=== PATIENT | female | born 1935 | race Caucasian/White ===

== ENCOUNTER 2021-10-03 08:58 | Emergency (ER) | payer BC ==
[~2021-10-03] VITALS: Ht 162.6 cm; Wt 65.8 kg
--- NOTE | 2021-10-03 09:18 | NUR ---
TO ER BED 11, SYED RA102 From [place] in [facility] "Tripped on sandals hit face on wall and hurt Right Shoulder", also patient has a cut on left knuckle, [id number], breathing even and non labored, connected to monitor
--- NOTE | 2021-10-03 10:00 | NUR ---
TAKEN TO CT
--- NOTE | 2021-10-03 10:11 | NUR ---
SPOKE TO DAUGHTER IN THE WAITING ROOM, INFORMED THAT PT IS STILL IN CT
[2021-10-03] MEDS ORDERED: TRAM50TA2 PO (12:36)
--- NOTE | 2021-10-03 13:16 | NUR ---
Patient discharged to home in stable condition. Written and verbal after care instructions given. Patient verbalizes understanding of instruction.
[2021-10-03 13:19] VITALS: BP 132/64
== END 2021-10-03 13:20 | disposition home or self-care (01) ==
LOC: ER 09:01
DX: S42.411A Displaced simple supracondylar fracture without intercondylar fracture of right humerus, initial encounter for closed fracture (principal); S61.412A Laceration without foreign body of left hand, initial encounter; S00.03XA Contusion of scalp, initial encounter; I10 Essential (primary) hypertension; W22.8XXA Striking against or struck by other objects, initial encounter; Y93.89 Activity, other specified; Y92.89 Other specified places as the place of occurrence of the external cause; Y99.8 Other external cause status
CPT/HCPCS: 70450-TC; 72125-TC; 73030-TC; 73060-TC; 73080-TC